=== PATIENT | female | born 1960 ===

== ENCOUNTER 2018-01-22 12:22 | Emergency (ER) | payer BC ==
[2018-01-22] MEDS ORDERED: diPHENhydraMINE IV* 50 MG/ML 1 ml VIAL (BENADRYL) IV ONE (12:25)
[2018-01-22] MEDS ORDERED: methylPREDNISolone 125 MG* 2 ML VIAL IV ONE (12:25)
[2018-01-22] MEDS ORDERED: Famotidine IV* 10 MG/ML 2 ML (20 mg) IV SLOW PU ONE (12:25)
[2018-01-22] MEDS ORDERED: NS 0.9% 1000 ML* 1,000 ML IV SCH (12:30)
--- NOTE | 2018-01-22 12:30 | ED ---
Allergic Reaction/Systemic - HPI Summary HPI Summary: Pt is 57 y/o F BIBA to [facility] due to allergic reaction. She was stung by bees in several places including chest, arms, legs, and neck. Rates pain as 4/10 in severity per nurse's report. History is otherwise limited by patient medical status and inability to answer questions, level V caveat. - History of Current Complaint Hx Obtained From: Patient, Family/Color Grinder, EMS Onset/Duration: Sudden Onset, Started minutes ago Severity Currently: Mild Pain Intensity: 4 Pain Scale Used: 0-10 Numeric Location: Diffuse Aggravating Factor(s): Nothing - Allergies/Home Medications Allergies/Adverse Reactions: Allergies Allergy/AdvReac Type Severity Reaction Status Date / Time No Known Allergies Allergy Verified 02/03/12 10:51 PMH/Surg Hx/FS Hx/Imm Hx Musculoskeletal History: Reports: Hx Arthritis Psychiatric History: Denies: Hx Anxiety - Cancer History Hx Chemotherapy: No Hx Radiation Therapy: No - Surgical History Surgery Procedure, Year, and Place: Hip replacement, back surgery Infectious Disease History: Denies: Traveled Outside the [place] in Last 30 Days - Family History Known Family History: Positive: Other - Aunt has multiple sclerosis - Social History Substance Use Type: Reports: None Review of Systems Negative: Fever Positive: Sore Throat Negative: Palpitations Positive: Shortness Of Breath Negative: Vomiting Positive: Other - Bee stings, redness All Other Systems Reviewed And Are Negative: Yes Physical Exam - Summary Physical Exam Summary: Appearance: Appears very weak and distressed Skin: 3 cm erythematous area on chest warm, dry, reflects adequate perfusion Head/face: normal Eyes: EOMI, LIZZ ENT: mucous membranes moist Neck: supple, non-tender Respiratory: CTA, breath sounds present Cardiovascular: RRR, pulses symmetrical Abdomen: non-tender, soft Bowel Sounds: present Musculoskeletal: normal, strength/ROM intact Neuro: normal, sensory motor intact, A&Ox3 Triage Information Reviewed: Yes Vital Signs Reviewed: Yes Allergic Reaction Course/Dx - Course Course Of Treatment: 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 She came in today without any evidence for severe allergy or even urticaria. She was largely nonverbal and somnolent but this appears to be likely from anxiety reaction after being stung. There is not even any significant redness at the area of bee sting. She resolved quickly here but was treated as possible allergy. - Diagnoses Differential Diagnosis/HQI/PQRI: Positive: Anaphylaxis, Local Allergic Reaction , Other - Anxiety reaction Provider Diagnoses: Anxiety reaction, Bee sting, History of anaphylaxis Discharge - Sign-Out/Discharge Documenting (check all that apply): Patient Departure - Discharge - Discharge Plan Condition: Improved Disposition: HOME Prescriptions: predniSONE TAB* [Deltasone TAB*] 50 mg PO DAILY #3 tab Patient Education Materials: Anaphylaxis (ED), Panic Attack (ED) Referrals: Ezra King [employer] MANAGER [Primary Care Provider] - Additional Instructions: Always carry your EpiPen wherever you go. Return with difficulty breathing, worse, new symptoms or other concerns. - Billing Disposition and Condition Condition: IMPROVED Disposition: Home - Attestation Statements Document Initiated by Scribe: Yes Documenting Scribe: Dano Mercado Provider For Whom Alvaroibe is Documenting (Include Credential): Dr. Paco Vines MD Scribe Attestation: IDano, scribed for Dr. Paco Vines MD on 01/22/18 at 1739. Scribe Documentation Reviewed: Yes Provider Attestation: The documentation as recorded by the scribeDano accurately reflects the service I personally performed and the decisions made by me, Dr. Paco Vines MD
[2018-01-22 14:07] VITALS: BP 128/75
== END 2018-01-22 14:05 | disposition home or self-care (01) ==
LOC: ED 12:22
DX: T63.441A Toxic effect of venom of bees, accidental (unintentional), initial encounter (principal); Y92.9 Unspecified place or not applicable; F41.9 Anxiety disorder, unspecified; Z87.892 Personal history of anaphylaxis
CPT/HCPCS: 96361; 96374; 96375; 99282